=== PATIENT | male | born 1965 | race Caucasian/White ===

== ENCOUNTER 2020-05-31 10:28 | Emergency (ER) | payer MEDICAID ==
[~2020-05-31] VITALS: Ht 175.3 cm; Wt 83.9 kg
[~2020-05-31 10:28] MED LIST: HYDR-4004 PO; QUET400T PO
[2020-05-31 10:32] VITALS: BP 135/88
[2020-05-31] MEDS ORDERED: BACITRACIN OINT 500 UNITS/GM PKT TP ONE (11:15)
[2020-05-31] MEDS ORDERED: KETOROLAC 30 MG/ML VIAL IM ONE (11:15)
[2020-05-31] MEDS ORDERED: CEPH500C16 PO (11:29)
[2020-05-31] MEDS ORDERED: IBUP-2213 PO (11:29)
[2020-05-31 11:38] VITALS: BP 135/88
== END 2020-05-31 11:40 | disposition home or self-care (01) ==
LOC: MED 10:28
DX: L03.115 Cellulitis of right lower limb (principal); Z79.899 Other long term (current) drug therapy
CPT/HCPCS: 96372; 99283; J1885